=== PATIENT | female | born 1995 | race Asian ===

== ENCOUNTER 2021-10-15 15:38 | Emergency (ER) | payer OTHER, SELFPAY ==
[2021-10-15 15:55] VITALS: BP 111/68; PULSE 74; RESP 16; TEMP 37.6; O2SAT 100
--- NOTE | 2021-10-15 16:30 | ED.EAR ---
HPI - Ear Problem General Chief complaint: Ear Stated complaint: vomiting, headache Source: patient Mode of arrival: ambulatory Limitations: no limitations History of Present Illness HPI Narrative: Patient is a 26-year-old female who presents complaining of bilateral ear pain. Reports cerumen impaction bilateral ears. She denies other complaints at this time. MD Complaint: ear pain Related Data Allergies Allergy/AdvReac Type Severity Reaction Status Date / Time No Known Allergies Allergy Verified 10/15/21 16:14 Review of Systems Review of Systems: CONSTITUTIONAL: Denies fever, chills, or sweats. EYES: Denies visual changes, redness, or discharge. ENT: Reports bilateral otalgia. CARDIOVASCULAR: Denies chest pain, palpitations, or edema. RESPIRATORY: Denies cough or dyspnea. GASTROINTESTINAL: Denies abdominal pain, nausea, vomiting, or diarrhea. GENITOURINARY: Denies dysuria or hematuria. SKIN: Denies rash or itching. MUSCULOSKELETAL: Denies back pain, joint pain, or myalgia. NEUROLOGIC: Denies headache, numbness, dizziness, or weakness. PSYCHIATRIC: Denies anxiety or depression. PMFSH Past Medical History Medical History Eczema Healthy female Infectious mononucleosis without complication Overweight Family History Family History Other Adopted Social History Social History Smoking status: Never smoker Alcohol intake: never Gender identity (if verbalized by the patient): Female Comments At the time of signature, I have reviewed and agree with nursing past medical, surgical, social, and family history unless otherwise noted. Please see nursing chart for further information. There is no relevant family history pertinent to the presenting complaint. Exam Narrative: GENERAL: Well-appearing, well-nourished, and in no acute distress. HEAD: Normocephalic, atraumatic. EYES: EOMI. No redness or drainage. Conjunctiva are normal. ENT: Mucous membranes pink and moist. Nares clear. No rhinorrhea. Cerumen impaction bilateral ears, unable to visualize TM at this time NECK: AROM. Supple. No lymphadenopathy. CHEST: No respiratory distress. Clear to auscultation. HEART: Regular rate and rhythm. No murmur appreciated. Normal peripheral pulses. EXTREMITIES: Normal range of motion. No edema. SKIN: Warm, dry, no rash. NEURO: No focal deficits. Alert and oriented x3. Gait steady. PSYCH: Normal affect. No signs of depression or anxiety. Course Vital Signs Vital signs: Vital Signs Temperature 37.6 C 10/15/21 15:55 Pulse Rate 74 10/15/21 15:55 Respiratory Rate 16 10/15/21 15:55 Blood Pressure 111/68 10/15/21 15:55 Pulse Oximetry 100 10/15/21 15:55 Temperature 37.6 C 10/15/21 15:55 Pulse Rate 74 10/15/21 15:55 Respiratory Rate 16 10/15/21 15:55 Blood Pressure 111/68 10/15/21 15:55 Pulse Oximetry 100 10/15/21 15:55 Reviewed Procedures Ear Wax Removal Both Ears: Ear Wax Removal Date: 10/15/21 Results: Re-examined: cerumen removed completely TM Examination: TM(s) intact, normal appearance Ear Canal Exam: atraumatic Patient Tolerated Procedure: well Complications: no problems Technique: ear canal irrigated and ear canal curetted Additional Comments: TMs normal bilaterally Medical Decision Making MDM Narrative Medical decision making narrative: Large amount of cerumen removed from bilateral ears. Patient reports improved hearing, denies other complaints at this time. Patient is stable for discharge to home with outpatient follow-up as needed. Differential Diagnosis Differential Diagnosis: Cerumen impaction, otitis media, otitis externa, foreign body Vital Signs Vital Signs: Vital Signs Temperature 37.6 C 10/15/21 15:55 Pulse Rate 74 10/15/21 15:55 Respiratory
== END 2021-10-15 17:06 | disposition home or self-care (01) ==
PROVIDERS: Emergency Provider Nurse Practitioner; PCP Family Medicine
DX: H61.23 Impacted cerumen, bilateral (principal)
CPT/HCPCS: 69210; 99212; A9270; G0463